=== PATIENT | male | born 1960 | race African-American/Black ===

== ENCOUNTER 2017-01-10 09:50 | Emergency (ER) | payer MEDICAID ==
[~2017-01-10] VITALS: Ht 180.3 cm; Wt 117.9 kg
[2017-01-10 10:29] LABS: Urine Bilirubin Negative (Negative); Urine Color Yellow (Yellow); Urine Glucose Normal (Normal); Urine Ketone Negative (Negative); Urine Nitrite Negative (Negative); Urine RBC 3 /hpf (0 - 3); Urine Squamous Epithelial Cell FEW /hpf (<5); Urine Urobilinogen Normal (Negative); Urine pH 5.5 (5.0-8.0)
[2017-01-10 10:30] LABS: Urine Blood 1+ /uL (Negative)
[2017-01-10] MEDS ORDERED: cloNIDine HCL 0.1 MG TAB PO ONE (10:30)
[2017-01-10] MEDS ORDERED: ONDANSETRON HCL 4 MG/2 ML VIAL IV ONE (10:30)
[2017-01-10] MEDS ORDERED: HYDROmorphone HCL 2 MG/ML VL IV ONE (10:30)
[2017-01-10] MEDS ORDERED: hydrALAZINE HCL 20 MG/ML VL ONE (11:00)
[2017-01-10] MEDS ORDERED: hydrALAZINE HCL 20 MG/ML VL IV ONE (11:15)
[2017-01-10 11:49] VITALS: BP 160/76
== END 2017-01-10 11:53 | disposition home or self-care (01) ==
LOC: EDBD 09:50 → ER 09:54
DX: M10.9 Gout, unspecified (principal); I10 Essential (primary) hypertension; E78.00 Pure hypercholesterolemia, unspecified; E78.5 Hyperlipidemia, unspecified; F17.210 Nicotine dependence, cigarettes, uncomplicated; F14.10 Cocaine abuse, uncomplicated; Z79.899 Other long term (current) drug therapy
CPT/HCPCS: 36415; 81001; 84550; 96374; 96375; 99284; J0360; J1170; J2405

== ENCOUNTER 2017-10-10 07:41 | Inpatient (IN) | payer MEDICAID ==
[~2017-10-10] VITALS: Ht 180.3 cm; Wt 128.1 kg
[2017-10-10 08:32] LABS: Basophils # (auto) 0.1 uL; Basophils % (auto) 0.5 % (0.0-2.0); Eosinophils # (auto) 0.2 uL; Hematocrit 41.1 % (41.0-53.0); Hemoglobin 13.5 g/dL (13.5-17.5); Lymphocytes # (auto) 2.5 uL; Lymphocytes % (auto) 16.5 % (10.0-50.0); Mean Corpuscular Hemoglobin 27.8 pg (28.0-32.0); Mean Corpuscular Hgb Conc. 32.9 g/dL (32.0-36.0); Mean Corpuscular Volume 84.4 fL (80.0-100.0); Monocytes # (auto) 1.2 uL; Monocytes % (auto) 7.6 % (0.0-12.0); Neutrophils # (auto) 11.5 uL; Neutrophils % (auto) 74.4 % (37.0-80.0); Nucleated Red Blood Cells % 0.1 %; Platelet Count (auto) 398 10^3/uL (140-450); Red Blood Cells 4.87 10^6/uL (4.5-5.90); White Blood Cell 15.4 10^3/uL (4.4-10.8)
[2017-10-10 08:44] LABS: Albumin 3.7 g/dL (3.4-5.0); BUN/Creatinine Ratio 13.5; Bilirubin, Total 0.8 mg/dL (0.2-1.0); Calcium 8.6 mg/dL (8.5-10.1); Total Protein 8.4 g/dL (6.4-8.2)
[2017-10-10] MEDS ORDERED: POTASSIUM CHL 10% (20 MEQ/15ML) 15ml ORAL SOLN PO ONE (09:15)
[2017-10-10] MEDS ORDERED: LORazepam 2MG/ML-1ML VIAL IV ONE (10:00)
[2017-10-10] MEDS ORDERED: IOHEXOL 300 MG/ML 100ML BOTTLE IJ ONE (10:04)
[2017-10-10] MEDS ORDERED: cloNIDine HCL 0.1 MG TAB PO ONE (10:15)
[2017-10-10 10:39] LABS: Blood Alcohol < 3.0 mg/dL (0-5); Lipase 70 U/L (73-393)
[2017-10-10 10:42] LABS: Alcohol, Urine < 3.0 mg/dL (0-5); Amphetamine Screen, Urine NEGATIVE (NEGATIVE); Barbiturate Scree,Urine NEGATIVE (NEGATIVE); Benzodiazephine Screen, Urine NEGATIVE (NEGATIVE); Cannabinoid Screen, Urine NEGATIVE (NEGATIVE); Cocaine Screen, Urine NEGATIVE (NEGATIVE); Opiate Scree,Urine NEGATIVE (NEGATIVE); Phencyclidine Screen, Urine NEGATIVE (NEGATIVE)
[2017-10-10 11:00] LABS: Urine Bacteria NONE SEEN /hpf (None Seen); Urine Blood 1+ /uL (Negative); Urine Hyaline Cast FEW /lpf (0 - 2); Urine Mucus FEW (None Seen); Urine Specific Gravity 1.029 (1.001-1.035); Urine WBC 4 /hpf (0 - 3)
[2017-10-10] MEDS ORDERED: cloNIDine HCL 0.1 MG TAB PO PRN (11:00)
[2017-10-10] MEDS ORDERED: LORazepam 2MG/ML-1ML VIAL IV PRN (11:00)
[2017-10-10] MEDS ORDERED: amLODIPine BESYLATE 5 MG TAB PO ONE (11:00)
[2017-10-10] MEDS ORDERED: POTASSIUM CHL 10 Meq TABLET PO ONE (11:00)
[2017-10-10] MEDS ORDERED: HCTZ 25 MG TAB PO ONE (11:00)
[2017-10-10] MEDS ORDERED: cefTRIAXone 1GM/10ml IVPUSH 10 ML IV ONE (11:00)
[2017-10-10] MEDS ORDERED: DOCUSATE SOD 100 MG CAP PO PRN (11:15)
[2017-10-10] MEDS ORDERED: TEMAZEPAM 15 MG CAP PO PRN (11:15)
[2017-10-10] MEDS ORDERED: NITROGLYCERIN 0.4 MG SL TAB SL PRN (11:15)
[2017-10-10] MEDS ORDERED: MORPHINE SULFATE 4 MG/ML SYR/VIAL IV PRN (11:15)
[2017-10-10] MEDS ORDERED: ACETAMINOPHEN 325 MG TAB PO PRN (11:15)
[2017-10-10] MEDS ORDERED: LABETALOL HCL 5 MG/ML ML 20ML VIAL IV PRN (11:15)
[2017-10-10] MEDS ORDERED: ONDANSETRON HCL 4 MG/2 ML VIAL IV PRN (11:15)
[2017-10-10] MEDS ORDERED: DEXTROSE (50%) 50ML SYRG IV PRN (11:15)
[2017-10-10] MEDS: HYDROcodone-ACET 5/325MG TAB PO PRN ×2 (11:40→22:52)
[2017-10-10] MEDS ORDERED: LEVETIRACETAM INJ 500 MG in D5W 5% 100 ML IV ONE (11:45)
[2017-10-10] MEDS: ACCU-CHEK COMFORT CURVE STRIP VI SCH ×3 (12:11→22:00)
[2017-10-10] MEDS: InsuLIN REG 1unit/0.01ml Soln (100units/ml) SC SCH ×3 (12:12→22:00)
[2017-10-10] MEDS: MORPHINE SULFATE 4 MG/ML SYR/VIAL IV PRN ×2 (13:16→18:13)
[2017-10-10] MEDS: SODIUM CHLOR 0.9% PF (SALINE LOCK) 10ML VIAL IV SCH ×2 (13:47→22:52)
[2017-10-10] MEDS: cloNIDine HCL 0.1 MG TAB PO SCH ×2 (14:34→22:50)
[2017-10-10 20:00] VITALS: BP 133/90
[2017-10-10 22:00] VITALS: BP 133/90
[2017-10-10] MEDS ORDERED: LEVETIRACETAM 500 MG TAB PO SCH (22:00)
[2017-10-10] MEDS: ATORVASTATIN 20 MG TAB PO SCH (22:49)
[2017-10-10] MEDS: FAMOTIDINE 20 MG TAB PO SCH (22:51)
[2017-10-11] VITALS (7 sets, daily range): BP systolic 104–156; BP diastolic 62–90
[2017-10-11] MEDS ORDERED: INFLUENZA QUAD 2017-2018 0.5 ML SYRG IM ONE (01:00)
[2017-10-11] MEDS ORDERED: LISI10TA6 PO (01:49)
[2017-10-11] MEDS ORDERED: TRAM50TA2 PO (01:49)
[2017-10-11] MEDS: HYDROcodone-ACET 5/325MG TAB PO PRN ×4 (05:16→22:21)
[2017-10-11] MEDS: cloNIDine HCL 0.1 MG TAB PO SCH ×3 (06:00→22:19)
[2017-10-11 06:40] LABS: Basophils # (auto) 0.1 uL; Basophils % (auto) 0.5 % (0.0-2.0); Eosinophils # (auto) 0.3 uL; Eosinophils % (auto) 3.1 % (0.0-7.0); Hematocrit 37.6 % (41.0-53.0); Hemoglobin 12.4 g/dL (13.5-17.5); Lymphocytes # (auto) 2.2 uL; Lymphocytes % (auto) 20.3 % (10.0-50.0); Mean Corpuscular Hgb Conc. 32.9 g/dL (32.0-36.0); Mean Corpuscular Volume 85.1 fL (80.0-100.0); Monocytes # (auto) 1.1 uL; Monocytes % (auto) 9.8 % (0.0-12.0); Neutrophils # (auto) 7.1 uL; Neutrophils % (auto) 66.3 % (37.0-80.0); Nucleated Red Blood Cells % 0.1 %; Platelet Count (auto) 367 10^3/uL (140-450); Red Blood Cells 4.42 10^6/uL (4.5-5.90); Red Cell Distribution Width 14.8 % (11.8-14.3); White Blood Cell 10.7 10^3/uL (4.4-10.8)
[2017-10-11] MEDS: SODIUM CHLOR 0.9% PF (SALINE LOCK) 10ML VIAL IV SCH ×3 (06:43→22:10)
[2017-10-11] MEDS: InsuLIN REG 1unit/0.01ml Soln (100units/ml) SC SCH ×4 (06:44→22:00)
[2017-10-11] MEDS: ACCU-CHEK COMFORT CURVE STRIP VI SCH ×4 (06:44→22:10)
[2017-10-11 06:54] LABS: Albumin 3.3 g/dL (3.4-5.0); BUN/Creatinine Ratio 13.8; Calcium 8.2 mg/dL (8.5-10.1); Potassium 3.3 mmol/L (3.5-5.1)
[2017-10-11 06:57] LABS: Bilirubin, Total 0.7 mg/dL (0.2-1.0); Total Protein 7.2 g/dL (6.4-8.2)
[2017-10-11] MEDS ORDERED: cefTRIAXone 1GM/10ml IVPUSH 10 ML IV SCH (09:00)
[2017-10-11] MEDS: MULTIPLE VITAMIN TAB PO SCH (09:38)
[2017-10-11] MEDS: FAMOTIDINE 20 MG TAB PO SCH ×2 (09:39→22:20)
[2017-10-11] MEDS: amLODIPine BESYLATE 5 MG TAB PO SCH (09:40)
[2017-10-11] MEDS: HCTZ 25 MG TAB PO SCH (09:42)
[2017-10-11] MEDS ORDERED: POTASSIUM CHL 10 Meq TABLET PO SCH (10:00)
[2017-10-11] MEDS ORDERED: POTASSIUM CHL 20 Meq TABLET PO ONE (15:15)
[2017-10-11] MEDS: ATORVASTATIN 20 MG TAB PO SCH (22:20)
[2017-10-12 05:00] VITALS: BP 156/81
[2017-10-12 05:50] LABS: Hematocrit 37.7 % (41.0-53.0); Hemoglobin 12.3 g/dL (13.5-17.5)
[2017-10-12 06:08] LABS: BUN/Creatinine Ratio 13.5; Calcium 8.7 mg/dL (8.5-10.1); Magnesium 2.5 mg/dL (1.6-2.6); Potassium 3.1 mmol/L (3.5-5.1)
[2017-10-12] MEDS: SODIUM CHLOR 0.9% PF (SALINE LOCK) 10ML VIAL IV SCH ×3 (06:24→22:11)
[2017-10-12] MEDS: InsuLIN REG 1unit/0.01ml Soln (100units/ml) SC SCH ×4 (06:25→22:00)
[2017-10-12] MEDS: ACCU-CHEK COMFORT CURVE STRIP VI SCH ×4 (06:25→22:13)
[2017-10-12] MEDS: cloNIDine HCL 0.1 MG TAB PO SCH ×3 (06:25→22:11)
[2017-10-12 07:04] VITALS: BP 157/76
[2017-10-12 08:20] VITALS: BP 157/76
[2017-10-12] MEDS: HYDROcodone-ACET 5/325MG TAB PO PRN ×3 (09:03→22:14)
[2017-10-12] MEDS: FAMOTIDINE 20 MG TAB PO SCH ×2 (09:04→22:12)
[2017-10-12] MEDS: amLODIPine BESYLATE 5 MG TAB PO SCH (09:04)
[2017-10-12] MEDS: MULTIPLE VITAMIN TAB PO SCH (09:04)
[2017-10-12] MEDS: HCTZ 25 MG TAB PO SCH (09:05)
[2017-10-12] MEDS ORDERED: POTASSIUM CHL 20 Meq TABLET PO ONE ×2 (11:30→15:00)
[2017-10-12] MEDS ORDERED: METF-370 PO (11:45)
[2017-10-12] MEDS ORDERED: LORazepam 2MG/ML-1ML VIAL IV ONE (12:00)
[2017-10-12] MEDS ORDERED: METO50TA7 PO (13:38)
[2017-10-12] MEDS ORDERED: LOSA50TA6 PO ×2 (13:38→15:25)
[2017-10-12] MEDS ORDERED: ATOR20TA PO (13:38)
[2017-10-12] MEDS ORDERED: METO-169 PO (15:25)
[2017-10-12] MEDS ORDERED: ATOR20TA50 PO (15:25)
[2017-10-12 16:36] VITALS: BP 152/89
[2017-10-12] MEDS ORDERED: LEVETIRACETAM 500 MG TAB PO ONE (17:45)
[2017-10-12 22:00] VITALS: BP 142/78
[2017-10-12] MEDS: LEVETIRACETAM INJ 500 MG in D5W 5% 100 ML IV SCH (22:11)
[2017-10-12] MEDS: ATORVASTATIN 20 MG TAB PO SCH (22:12)
[2017-10-13 05:00] VITALS: BP 138/97
[2017-10-13] MEDS: SODIUM CHLOR 0.9% PF (SALINE LOCK) 10ML VIAL IV SCH ×2 (05:52→14:00)
[2017-10-13] MEDS: cloNIDine HCL 0.1 MG TAB PO SCH ×2 (05:53→14:12)
[2017-10-13] MEDS: InsuLIN REG 1unit/0.01ml Soln (100units/ml) SC SCH ×2 (06:09→11:30)
[2017-10-13] MEDS: HYDROcodone-ACET 5/325MG TAB PO PRN ×3 (06:10→14:14)
[2017-10-13] MEDS: ACCU-CHEK COMFORT CURVE STRIP VI SCH ×2 (07:00→11:30)
[2017-10-13 09:00] VITALS: BP 126/76
[2017-10-13] MEDS: amLODIPine BESYLATE 5 MG TAB PO SCH (09:59)
[2017-10-13] MEDS: MULTIPLE VITAMIN TAB PO SCH (09:59)
[2017-10-13] MEDS: FAMOTIDINE 20 MG TAB PO SCH (09:59)
[2017-10-13] MEDS: LEVETIRACETAM INJ 500 MG in D5W 5% 100 ML IV SCH (10:44)
[2017-10-13 10:53] VITALS: BP 126/76
[2017-10-13] MEDS ORDERED: LEVE500T22 PO (11:40)
[2017-10-13 12:35] VITALS: BP 150/76
[2017-10-13] MEDS ORDERED: POTASSIUM CHL 20 Meq TABLET PO ONE (13:15)
== END 2017-10-13 15:15 | disposition home health service (06) | DRG 53 ==
LOC: ER 07:41 → EDBD 07:41 → TELE 07:42 → TELE-WESTW 19:07
PROVIDERS: ADMIT Internal Medicine; ATTEND Internal Medicine
PROC: 5A09357 Assistance with Respiratory Ventilation, Less than 24 Consecutive Hours, Continuous Positive Airway Pressure (ICD-10-PCS; principal; 2017-10-11)
DX: G40.409 Other generalized epilepsy and epileptic syndromes, not intractable, without status epilepticus (principal); I11.9 Hypertensive heart disease without heart failure; E66.01 Morbid (severe) obesity due to excess calories; E87.6 Hypokalemia; G47.10 Hypersomnia, unspecified; E78.5 Hyperlipidemia, unspecified; K59.00 Constipation, unspecified; G47.00 Insomnia, unspecified; M10.9 Gout, unspecified; R32 Unspecified urinary incontinence; E11.9 Type 2 diabetes mellitus without complications; Z68.39 Body mass index [BMI] 39.0-39.9, adult; Z79.899 Other long term (current) drug therapy; Z82.49 Family history of ischemic heart disease and other diseases of the circulatory system; Z87.891 Personal history of nicotine dependence; Z83.3 Family history of diabetes mellitus; Z91.14 Patient's other noncompliance with medication regimen; Z87.828 Personal history of other (healed) physical injury and trauma
CPT/HCPCS: 36415; 70450; 74177; 80048; 80053; 80061; 80307; 80320; 81001; 82270; 82962; 83036; 83605; 83690; 83735; 84132; 84484; 85014; 85018; 85025; 87040; 87086; 93005; 93306; 93886; 94660; 95819; 96374; 96375; 97163; J2405; J7060

== ENCOUNTER 2018-12-20 07:46 | Inpatient (IN) | payer MEDICAID ==
[~2018-12-20] VITALS: Ht 180.3 cm; Wt 128.0 kg
[2018-12-20] VITALS (16 sets, daily range): BP systolic 107–182; BP diastolic 67–90
[~2018-12-20 07:46] MED LIST: ATOR20TA PO; ATOR20TA50 PO; LEVE500T22 PO; LOSA-46 PO; MET5XLT PO; METF-370 PO; METO-169 PO; TRAM50TA2 PO
[2018-12-20 08:23] LABS: Basophils # (auto) 0.1 uL; Basophils % (auto) 0.5 % (0.0-2.0); Eosinophils # (auto) 0.4 uL; Eosinophils % (auto) 3.6 % (0.0-7.0); Hematocrit 42.6 % (41.0-53.0); Lymphocytes # (auto) 3.2 uL; Lymphocytes % (auto) 30.2 % (10.0-50.0); Mean Corpuscular Hemoglobin 28.5 pg (28.0-32.0); Mean Corpuscular Hgb Conc. 32.7 g/dL (32.0-36.0); Mean Corpuscular Volume 87.1 fL (80.0-100.0); Monocytes # (auto) 0.6 uL; Monocytes % (auto) 5.9 % (0.0-12.0); Neutrophils # (auto) 6.4 uL; Neutrophils % (auto) 59.8 % (37.0-80.0); Platelet Count (auto) 352 10^3/uL (140-450); Red Cell Distribution Width 14.2 % (11.8-14.3); White Blood Cell 10.7 10^3/uL (4.4-10.8)
[2018-12-20] MEDS ORDERED: SODIUM CHLORIDE 0.9% 1,000 ML IV ONE (08:25)
[2018-12-20] MEDS ORDERED: hydrALAZINE HCL 20 MG/ML VL IV ONE (08:30)
[2018-12-20 08:40] LABS: Calcium 8.9 mg/dL (8.5-10.1); Magnesium 1.9 mg/dL (1.6-2.6); Potassium 3.4 mmol/L (3.5-5.1)
[2018-12-20] MEDS ORDERED: ACE3T PO (08:42)
[2018-12-20 08:48] LABS: Bilirubin, Total 0.3 mg/dL (0.2-1.0); Total Protein 8.2 g/dL (6.4-8.2)
[2018-12-20] MEDS ORDERED: LEVE500T22 PO (09:00)
[2018-12-20] MEDS ORDERED: ALLO100T PO (09:00)
[2018-12-20 09:01] LABS: INR 0.93 (0.9-1.15); Partial Thromboplastin Time 29.7 sec (23.78-33.04)
[2018-12-20 09:34] LABS: Urine Bacteria NONE SEEN /hpf (None Seen); Urine Blood TRACE /uL (Negative); Urine Specific Gravity 1.008 (1.001-1.035); Urine WBC <1 /hpf (0 - 3)
[2018-12-20] MEDS ORDERED: LABETALOL HCL 5 MG/ML ML 20ML VIAL IV ONE (09:45)
[2018-12-20] MEDS ORDERED: POTASSIUM EFFERVESENT TAB 25 MEQ PO ONE (10:15)
[2018-12-20] MEDS: NICARDIPINE 25MG/250ML BAG KIT 250 ML IV SCH ×3 (11:24→21:15)
[2018-12-20] MEDS ORDERED: MORPHINE SULF INJ 2 MG/ML SYRINGE 1ML IV PRN (12:45)
[2018-12-20] MEDS ORDERED: NITROGLYCERIN 0.4 MG SL TAB SL PRN (12:45)
[2018-12-20] MEDS ORDERED: DEXTROSE (50%) 50ML SYRG IV PRN (12:45)
[2018-12-20] MEDS: hydrALAZINE HCL 25 MG TAB PO SCH ×2 (13:50→22:18)
[2018-12-20] MEDS: cloNIDine HCL 0.1 MG TAB PO SCH ×2 (13:51→22:09)
--- NOTE | 2018-12-20 15:55 | NUR ---
REPORT RECEIVED FROM ER NURSE: PATIENT RECEIVED TO ICU PATIENT ON NICARDIPINE DRIP AT 7.5. HOOKED UP TO BEDSIDE MONITOR. CHG BATH GIVEN. 2LITERS NASAL CANULA. SEE PX.
[2018-12-20] MEDS: ACCU-CHEK COMFORT CURVE STRIP VI SCH ×2 (17:00→22:11)
[2018-12-20] MEDS: InsuLIN REG 1unit/0.01ml Soln (100units/ml) SC SCH ×2 (17:00→22:00)
[2018-12-20] MEDS: HYDROcodone-ACET 5/325MG TAB PO PRN (17:44)
--- NOTE | 2018-12-20 18:48 | NUR ---
IV insertion: IV access obtained, via clean sterile technique by inserting #20 gauge catheter at after one attempt. IV secured properly. No trauma to site. Patient tolerated procedure well.
--- NOTE | 2018-12-20 19:10 | NUR ---
received report from Martine SHEETS, assumed care of male pt. pt sitting in bed watching tv. pt A&O x4. pt follows commands. pt on a cardiac care unit nurse SR90. pt is on a Cardene drip bp is 138/78. pt is on 2L N/C. IV to L AC 20G, and L hand 20 G. pt has urinal at bedside. emptied 100ml yellow clear urine. pt lower extremities severally weak. pt states he uses a wheelchair at home and prior to the wheelchair he crawled on the ground and dragged his legs. pt has scabs on knees bilaterally. pt states no pain at this time. the hob is 30*, bed lowest position, wheels locked, 2 side rails up and padded for seizure precaution, call light within reach.pt is full view of rn station. will continue to care for and monitor.
--- NOTE | 2018-12-20 19:45 | NUR ---
SBAR report given to Meghna.
[2018-12-20] MEDS: GABAPENTIN 100 MG CAP PO SCH (22:05)
[2018-12-20] MEDS: METOPROLOL TARTRATE 50 MG TAB PO SCH (22:06)
[2018-12-20] MEDS: ATORVASTATIN 20 MG TAB PO SCH (22:07)
[2018-12-20] MEDS: LEVETIRACETAM 500 MG TAB PO SCH (22:08)
[2018-12-21] VITALS (75 sets, daily range): BP systolic 95–154; BP diastolic 44–97
[2018-12-21] MEDS: HYDROcodone-ACET 5/325MG TAB PO PRN ×4 (00:33→22:12)
--- NOTE | 2018-12-21 00:50 | NUR ---
pain pt reports pain /10. prescribed pain medication given. will reassess, monitor and care for pt.
[2018-12-21] MEDS: NICARDIPINE 25MG/250ML BAG KIT 250 ML IV SCH ×3 (01:31→12:15)
[2018-12-21] MEDS: cloNIDine HCL 0.1 MG TAB PO SCH ×2 (06:00→13:59)
[2018-12-21] MEDS: hydrALAZINE HCL 25 MG TAB PO SCH ×3 (06:00→22:10)
[2018-12-21] MEDS: InsuLIN REG 1unit/0.01ml Soln (100units/ml) SC SCH ×4 (06:35→22:12)
[2018-12-21] MEDS: ACCU-CHEK COMFORT CURVE STRIP VI SCH ×4 (06:35→22:12)
--- NOTE | 2018-12-21 07:00 | NUR ---
Report received from KORTNEY Coffman.
[2018-12-21 08:45] LABS: Basophils # (auto) 0 uL; Basophils % (auto) 0.5 % (0.0-2.0); Eosinophils # (auto) 0.4 uL; Eosinophils % (auto) 3.6 % (0.0-7.0); Hematocrit 39.8 % (41.0-53.0); Hemoglobin 12.9 g/dL (13.5-17.5); Lymphocytes # (auto) 2.8 uL; Lymphocytes % (auto) 26.9 % (10.0-50.0); Mean Corpuscular Hemoglobin 28.3 pg (28.0-32.0); Mean Corpuscular Hgb Conc. 32.5 g/dL (32.0-36.0); Mean Corpuscular Volume 87.1 fL (80.0-100.0); Monocytes # (auto) 0.9 uL; Monocytes % (auto) 8.4 % (0.0-12.0); Neutrophils # (auto) 6.2 uL; Neutrophils % (auto) 60.6 % (37.0-80.0); Nucleated Red Blood Cells % 0.1 %; Platelet Count (auto) 328 10^3/uL (140-450); Red Blood Cells 4.57 10^6/uL (4.5-5.90); Red Cell Distribution Width 14.4 % (11.8-14.3); White Blood Cell 10.3 10^3/uL (4.4-10.8)
[2018-12-21 09:03] LABS: Calcium 8.6 mg/dL (8.5-10.1); Potassium 3.6 mmol/L (3.5-5.1)
[2018-12-21 09:10] LABS: Albumin 3.6 g/dL (3.4-5.0); BUN/Creatinine Ratio 9.8; Bilirubin, Total 0.5 mg/dL (0.2-1.0); Total Protein 7.2 g/dL (6.4-8.2)
[2018-12-21] MEDS: LOSARTAN POTASSIUM 50 MG TAB PO SCH (09:37)
[2018-12-21] MEDS: GABAPENTIN 100 MG CAP PO SCH ×2 (09:37→22:09)
[2018-12-21] MEDS: LEVETIRACETAM 500 MG TAB PO SCH ×2 (09:37→22:09)
[2018-12-21] MEDS: FAMOTIDINE 20 MG TAB PO SCH (09:37)
[2018-12-21] MEDS: METOPROLOL TARTRATE 50 MG TAB PO SCH (09:40)
--- NOTE | 2018-12-21 10:00 | NUR ---
IV insertion: IV access obtained, via clean sterile technique by inserting #22 gauge catheter at after one attempt. IV secured properly. No trauma to site. Patient tolerated procedure well.
[2018-12-21] MEDS ORDERED: diphenhdrAMINE HCL 50 MG/1 ML VL IV PRN (15:30)
--- NOTE | 2018-12-21 15:33 | NUR ---
Dr. Mott at bedside- Downgrade to tele, okay to give benadryl q12h prn itching.
[2018-12-21] MEDS: diphenhdrAMINE HCL 25 MG CAP PO PRN (15:47)
[2018-12-21] MEDS: ACETAMINOPHEN/CODEINE#3 (300/30mg) TAB PO PRN (16:09)
[2018-12-21] MEDS: metFORMIN HYDROCHLORIDE 500 MG TAB PO SCH (17:45)
--- NOTE | 2018-12-21 19:05 | NUR ---
SBAR report given to Meghna.
--- NOTE | 2018-12-21 19:30 | NUR ---
REPORT GIVEN TO LUPIS SHEETS
--- NOTE | 2018-12-21 19:54 | NUR ---
PATIENT ADMITTED TO FLOOR Patient was transferred from ICU to Tele floor. Patient arrived in bed with no s/s of distress noted. Educated patient on POC/unit/remote/call light and policies. Patient verbalized understanding. Bed is in lowest/locked position with side rails up X's 2 and call light within reach of patient. Bed alarm is on for precautions. Will continue to monitor for changes and round hourly/PRN.
--- NOTE | 2018-12-21 19:55 | NUR ---
ICU patient trans to floor SBAR GIVEN.TRANSFERRED by MILAGROS SHEETS. KASHIF DAS transferred to via BED on information tech and portable 02. All patient medications and personal belongings transferred with patient to receiving floor. Patient care transferred to LUPIS SHEETS
[2018-12-21] MEDS: ALLOPURINOL 100 MG TAB PO SCH (22:09)
[2018-12-21] MEDS: ATORVASTATIN 20 MG TAB PO SCH (22:10)
[2018-12-22 05:00] VITALS: BP 146/92
[2018-12-22] MEDS: hydrALAZINE HCL 25 MG TAB PO SCH ×2 (06:07→13:19)
[2018-12-22] MEDS: InsuLIN REG 1unit/0.01ml Soln (100units/ml) SC SCH ×3 (06:08→16:32)
[2018-12-22] MEDS: ACCU-CHEK COMFORT CURVE STRIP VI SCH ×3 (06:09→16:32)
[2018-12-22 08:00] VITALS: BP 197/90
[2018-12-22] MEDS: metFORMIN HYDROCHLORIDE 500 MG TAB PO SCH (09:00)
[2018-12-22] MEDS: HYDROcodone-ACET 5/325MG TAB PO PRN (09:30)
[2018-12-22] MEDS ORDERED: METOPROLOL SUCCINATE XL 50 MG TAB PO SCH (10:00)
[2018-12-22] MEDS: LEVETIRACETAM 500 MG TAB PO SCH (10:33)
[2018-12-22] MEDS: LOSARTAN POTASSIUM 50 MG TAB PO SCH (10:33)
[2018-12-22] MEDS: GABAPENTIN 100 MG CAP PO SCH (10:34)
[2018-12-22] MEDS: ALLOPURINOL 100 MG TAB PO SCH (10:34)
[2018-12-22] MEDS: FAMOTIDINE 20 MG TAB PO SCH (10:34)
--- NOTE | 2018-12-22 11:15 | NUR ---
RECHECK PT'S B/P 170/92.
[2018-12-22] MEDS: diphenhdrAMINE HCL 25 MG CAP PO PRN (11:18)
[2018-12-22] MEDS: ACETAMINOPHEN/CODEINE#3 (300/30mg) TAB PO PRN (11:18)
--- NOTE | 2018-12-22 11:18 | NUR ---
ASSUMED CARE, PT AAOX4, BREATHING EVEN UNLABORED, S1, S2, LUNGS CLEAR JONY TO AUSCULTATION. EQUAL STRENGTH TO UPPER EXTREMITIES, JONY LOWER EXTREMITIES EXTREMELY WEAK. NO ACUTE DISTRESS. ENCOURAGE TO CALL FOR ASSISTANCE WHEN NEEDED. BED LOCKED IN THE LOWEST POSITION, CALL LIGHT WITHIN EASY REACH, WILL CONTINUE CARE.
[2018-12-22 12:00] VITALS: BP 185/95
[2018-12-22] MEDS ORDERED: cloNIDine HCL 0.1 MG TAB PO ONE (14:30)
--- NOTE | 2018-12-22 14:40 | NUR ---
DR. KELLEY AT BEDSIDE. NEW ORDER CLONIDINE 0.2MG PO ONCE. DISCHARGE IF B/P GOES DOWN.
[2018-12-22 15:27] VITALS: BP 185/76
[2018-12-22 16:37] VITALS: BP 162/91
--- NOTE | 2018-12-22 16:44 | NUR ---
B/P 161/92, OK TO DISCHARGE PER DR. KELLEY.
--- NOTE | 2018-12-22 17:03 | NUR ---
B/P 150/100, 79, DENIED OF ANY PAIN OR DISCOMFORT AT THIS TIME.
--- NOTE | 2018-12-22 17:20 | NUR ---
Discharge instructions given as ordered. Encourage to follow up with PCP DR. SUSAN LEE ON 01/02/19 @ 0900 as instructed. All questions and concerns addressed. Patient verbalized understanding. Medication reconciliation form completed and copy given to patient. Home medications held in Pharmacy returned to patient, and needed vaccines given. IV removed with catheter intact, pressure dressing applied. Telemetry unit returned to [facility]. Patient taken to vehicle via wheelchair with all personal belongings, accompanied by staff and family member. No distress noted at time of departure.
== END 2018-12-22 17:15 | disposition home or self-care (01) | DRG 199 ==
LOC: EDBD 07:46 → ER 07:46 → TELE 12:41 → ICU WEST 15:36 → TELE-WESTW 12-21 20:09
PROVIDERS: ADMIT Nurse Practitioner Acute Care; ATTEND Internal Medicine
DX: I16.0 Hypertensive urgency (principal); E11.42 Type 2 diabetes mellitus with diabetic polyneuropathy; E11.51 Type 2 diabetes mellitus with diabetic peripheral angiopathy without gangrene; E87.6 Hypokalemia; E78.5 Hyperlipidemia, unspecified; M10.9 Gout, unspecified; G40.909 Epilepsy, unspecified, not intractable, without status epilepticus; E66.9 Obesity, unspecified; G89.4 Chronic pain syndrome; I11.0 Hypertensive heart disease with heart failure; I50.9 Heart failure, unspecified; J98.11 Atelectasis; Z79.899 Other long term (current) drug therapy; Z82.49 Family history of ischemic heart disease and other diseases of the circulatory system; Z83.3 Family history of diabetes mellitus; Z87.891 Personal history of nicotine dependence; Z91.19 Patient's noncompliance with other medical treatment and regimen; Z68.39 Body mass index [BMI] 39.0-39.9, adult
CPT/HCPCS: 36415; 71045; 80053; 80061; 81001; 82962; 83036; 83735; 83880; 84443; 84484; 85025; 85379; 85610; 85652; 85730; 86141; 87081; 93005; 93306; 93926; 94761; 96361; 96374; 96375; G0378; J1815